=== PATIENT | male | born 2000 | race Caucasian/White ===

== ENCOUNTER 2019-08-05 14:28 | Emergency (ER) | payer BC, OTHER, SELFPAY ==
[~2019-08-05] VITALS: Ht 175.3 cm; Wt 72.7 kg
[2019-08-05] MEDS ORDERED: cefTRIAXone SOD 250MG VIAL (J0696 PER 250MG) IM ONE (16:00)
[2019-08-05] MEDS ORDERED: AZITHROMYCIN 250MG TABLET PO ONE (16:00)
[2019-08-05] MEDS ORDERED: LIDOCAINE 1% SDV 5ML VIAL DILUENT ONE (16:00)
[2019-08-05 16:18] VITALS: BP 135/71
[2019-08-05 17:09] LABS: CHLAMYDIA DNA AMPLIFICATION NEGATIVE (NEGATIVE); GC DNA AMPLIFICATION NEGATIVE (NEGATIVE)
== END 2019-08-05 16:19 | disposition home or self-care (01) ==
LOC: M ED 14:28
DX: Z20.2 Contact with and (suspected) exposure to infections with a predominantly sexual mode of transmission (principal); F17.210 Nicotine dependence, cigarettes, uncomplicated
CPT/HCPCS: 81001; 87661; 96372; 99283; J0696